=== PATIENT | male | born 2000 | race Caucasian/White ===

== ENCOUNTER → 2019-02-22 | Outpatient (CLI) | payer OTHER ==
[~2019-02-22] MED LIST: MOTRIN 200200 MG/TAB PO; NORCO 325 MG-51 TAB PO; ZITHROMAX 250M250 MG PO
== END ==
LOC: COL.RAD 08:29
DX: R10.32 Left lower quadrant pain (principal); W20.8XXA Other cause of strike by thrown, projected or falling object, initial encounter
CPT/HCPCS: Q9967

== ENCOUNTER 2023-07-08 08:39 | Emergency (ER) | payer SELFPAY ==
[~2023-07-08] VITALS: Ht 167.6 cm; Wt 67.3 kg
[2023-07-08 08:48] VITALS: TEMP 98
[2023-07-08] MEDS ORDERED: Morphine 4 MG/ML VIAL IV PRN (09:00)
[2023-07-08] MEDS ORDERED: Ondansetron 4 MG/2 ML VIAL IV PRN ×2 (09:00→12:00)
[2023-07-08] MEDS ORDERED: NS 1,000 ML IV ONE (09:00)
[2023-07-08 09:40] LABS: BASO # 0.1 K/mm3 (0.0-0.2); BASO % 0.6 % (0.0-2.0); GRAN # 6.9 K/mm3 (1.4-6.5); GRAN % 82.5 % (42.2-75.2); HEMATOCRIT 47.4 % (42.0-52.0); HEMOGLOBIN 16.7 g/dl (13.5-18.0); LYMPH % 11.4 % (20.0-51.0); MEAN CELL VOLUME 89 fl (80.0-100.0); MEAN CORPUSCULAR HEMOGLOBIN 31 pg (27-31); MEAN CORPUSCULAR HGB CONC 35 g/dl (33.0-37.0); MEAN PLATELET VOLUME 9.4 fl (7.4-10.4); MONO # 0.4 K/mm3 (0.1-0.6); PLATELET COUNT 289 K/mm3 (130-400); RED BLOOD COUNT 5.34 M/mm3 (4.20-5.60); REDCELL DISTRIBUTION WIDTH-CV 11.9 % (11.5-14.5)
[2023-07-08] MEDS ORDERED: Iohexol 300 - 100 ML VIAL IV ONE (09:48)
[2023-07-08] MEDS ORDERED: NS 100 ML IV SCH (09:49)
[2023-07-08 10:05] LABS: ALBUMIN 4.4 gm/dL (3.5-5.0); BILIRUBIN,TOTAL 0.5 mg/dL (0.2-1.2); CALCIUM 10.1 mg/dL (8.4-10.2); CREATININE, serum 0.97 mg/dL (0.72-1.25); POTASSIUM 3.9 mmol/L (3.5-4.5); TOTAL PROTEIN 7.2 gm/dL (6.2-8.1)
[2023-07-08 11:25] LABS: PH 5.5 (5.0-8.5); URINE APPEARANCE Clear (CLEAR/HAZY); URINE BLOOD Negative (NEGATIVE); URINE COLOR Yellow (YELLOW); URINE GLUCOSE Negative (NEGATIVE); URINE KETONE TRACE (NEGATIVE); URINE NITRATE Negative (NEGATIVE); URINE PROTEIN(semi-quant) Negative (NEGATIVE); URINE UROBILINOGEN 0.2 E.U/dL (0.2-1.0)
[2023-07-08 11:26] LABS: SQUAMOUS EPITHELIAL 0-2 /hpf (0-10); URINE RBC None Seen /hpf (0-2); URINE WBC None Seen /hpf (0-2)
[2023-07-08 11:27] LABS: COLLECTION METHOD CLEAN CATCH
[2023-07-08] MEDS ORDERED: NORCO 325 MG-51 TAB PO (11:53)
[2023-07-08] MEDS ORDERED: ZOFRAN ODT4 MG PO (11:53)
[2023-07-08] MEDS ORDERED: Ketorolac 15 MG/ML VIAL IV ONE (12:00)
[2023-07-08] MEDS ORDERED: Morphine 4 MG/ML VIAL IV ONE (12:00)
[2023-07-08 12:06] VITALS: BP 146/91; PULSE 62
== END 2023-07-08 12:06 | disposition home or self-care (01) ==
LOC: COL.ER 08:39
PROVIDERS: Personal Emergency Response Attendant
DX: R10.30 Lower abdominal pain, unspecified (principal); R11.0 Nausea
CPT/HCPCS: J1885; J2270; J2405; J7030; Q9967